=== PATIENT | male | born 1975 | race African-American/Black ===

== ENCOUNTER 2019-03-13 11:07 | Inpatient (IN) | payer OTHER ==
--- NOTE | 2019-03-13 11:50 | ER Document Report ---
ED General - General Chief Complaint: Leg Swelling Stated Complaint: LEG SWELLING Time Seen by Provider: 03/13/19 11:47 Mode of Arrival: Medic Information source: Patient TRAVEL OUTSIDE OF THE [place] IN LAST 30 DAYS: No - Related Data Allergies/Adverse Reactions: No Known Allergies Allergy (Unverified 03/29/15 16:38) Past Medical History - Social History Smoking Status: Never Smoker Frequency of alcohol use: None Drug Abuse: None Family History: Reviewed & Not Pertinent Patient has suicidal ideation: No Patient has homicidal ideation: No - Past Medical History Cardiac Medical History: Reports: Hx Hypertension Past Surgical History: Reports: Hx Orthopedic Surgery - back Physical Exam - Vital signs Vitals: Temp Pulse Resp BP Pulse Ox 98.2 F 115 H 14 123/59 L 95 03/13/19 11:22 03/13/19 11:22 03/13/19 11:22 03/13/19 11:22 03/13/19 11:22 Course - Vital Signs Vital signs: Temp Pulse Resp BP Pulse Ox 98.2 F 115 H 14 123/59 L 95 03/13/19 11:22 03/13/19 11:22 03/13/19 11:22 03/13/19 11:22 03/13/19 11:22
--- NOTE | 2019-03-13 11:52 | ER Document Report ---
ED Medical Screen (RME) - General Chief Complaint: Leg Swelling Stated Complaint: LEG SWELLING Time Seen by Provider: 03/13/19 11:47 Mode of Arrival: Medic Information source: Patient Notes: 43-year-old male presented in ED for increasing swelling to both ankles and legs up to thigh. He states he is also got much short of breath and he states he has medicines that he supposed to be taken at home but has not been taking them recently he is also supposed to be on oxygen at home but has not been on it. He states that he was told that his machine was too old and he needed to get a new machine. When he did get to the emergency room his O2 sat was 88% with oxygen go up to 100%. Patient is short of breath with gross edema to both legs. We will get labs chest x-ray decreased oxygen until he sats at 96 and he will be followed up with another provider. I have greeted and performed a rapid initial assessment of this patient. A comprehensive ED assessment and evaluation of the patient, analysis of test results and completion of medical decision making process will be conducted by an additional ED providers. TRAVEL OUTSIDE OF THE [place] IN LAST 30 DAYS: No - Related Data Allergies/Adverse Reactions: No Known Allergies Allergy (Unverified 03/29/15 16:38) Past Medical History - Social History Frequency of alcohol use: None Drug Abuse: None - Past Medical History Cardiac Medical History: Reports: Hx Hypertension Past Surgical History: Reports: Hx Orthopedic Surgery - back Physical Exam - Vital signs Vitals: Temp Pulse Resp BP Pulse Ox 98.2 F 115 H 14 123/59 L 95 03/13/19 11:22 03/13/19 11:22 03/13/19 11:22 03/13/19 11:22 03/13/19 11:22 Course - Vital Signs Vital signs: Temp Pulse Resp BP Pulse Ox 98.2 F 115 H 14 123/59 L 95 03/13/19 11:22 03/13/19 11:22 03/13/19 11:22 03/13/19 11:22 03/13/19 11:22
[2019-03-13] MEDS ORDERED: KETOROLAC TROMETHAMINE INJ/PF 30 MG/1 ML SDV IV ONE (12:09)
[2019-03-13] MEDS ORDERED: FUROSEMIDE INJ/PF 40 MG/4 ML SDV IV ONE (12:09)
[2019-03-13 12:20] LABS: ABSOLUTE BASOPHILS # (AUTO) 0.1 10^3/uL (0.0-0.2); ABSOLUTE EOSINOPHILS # (AUTO) 0.1 10^3/uL (0.0-0.6); ABSOLUTE LYMPHOCYTES (AUTO) 2.2 10^3/uL (0.5-4.7); ABSOLUTE MONOCYTES (AUTO) 0.9 10^3/uL (0.1-1.4); ABSOLUTE NEUT (AUTO) 7.3 10^3/uL (1.7-8.2); BASOPHILS % (AUTO) 0.5 % (0-2); EOSINOPHILS % (AUTO) 1.3 % (0-6); HEMATOCRIT 34.9 % (37.9-51.0); HEMOGLOBIN 11.8 g/dL (13.5-17.0); LYMPHOCYTES % (AUTO) 20.5 % (13-45); MEAN CORPUSCULAR HGB CONC 33.7 g/dL (32.0-36.0); MEAN CORPUSCULAR VOLUME 95 fl (80-97); MONOCYTES % (AUTO) 8.1 % (3-13); PLATELET COUNT 183 10^3/uL (150-450); RED BLOOD COUNT 3.67 10^6/uL (4.35-5.55); RED CELL DISTRIBUTION WIDTH 13.9 % (11.5-14.0); SEGMENTED NEUTROPHILS % (AUTO) 69.6 % (42-78); TOTAL CELLS COUNTED % (AUTO) 100 %; WHITE BLOOD COUNT 10.6 10^3/uL (4.0-10.5)
--- NOTE | 2019-03-13 12:22 | ER Document Report ---
ED General - General Chief Complaint: Leg Swelling Stated Complaint: LEG SWELLING Time Seen by Provider: 03/13/19 11:47 Mode of Arrival: Medic Information source: Patient, Relative TRAVEL OUTSIDE OF THE [place] IN LAST 30 DAYS: No - HPI Patient complains to provider of: swelling Onset: Yesterday - pt has h/o CHF and HTN with increased swelling of his legs especially over the past 1-2 days. He states he has not been taking his meds or using his home O2 as he should. He denies SOB, CP - Related Data Allergies/Adverse Reactions: No Known Allergies Allergy (Unverified 03/29/15 16:38) Past Medical History - General Information source: Relative - Social History Smoking Status: Never Smoker Frequency of alcohol use: None Drug Abuse: None Family History: Reviewed & Not Pertinent Patient has suicidal ideation: No Patient has homicidal ideation: No - Past Medical History Cardiac Medical History: Reports: Hx Congestive Heart Failure, Hx Hypercholesterolemia, Hx Hypertension Pulmonary Medical History: Reports: Hx COPD Past Surgical History: Reports: Hx Orthopedic Surgery - back, Hx Vascular Surgery - IVC filter Review of Systems - Review of Systems Constitutional: No symptoms reported EENT: No symptoms reported Cardiovascular: No symptoms reported Respiratory: No symptoms reported Gastrointestinal: No symptoms reported Musculoskeletal: Leg swelling, Ankle swelling Neurological/Psychological: No symptoms reported -: Yes All other systems reviewed and negative Physical Exam - Vital signs Vitals: Temp Pulse Resp BP Pulse Ox 98.2 F 115 H 14 123/59 L 95 03/13/19 11:22 03/13/19 11:22 03/13/19 11:22 03/13/19 11:22 03/13/19 11:22 - General General appearance: Appears well In distress: None - pt. is morbidly obese - HEENT Pharynx: Normal Neck: Normal - Respiratory Respiratory status: No respiratory distress Breath sounds: Normal Chest palpation: Normal - Cardiovascular Rhythm: Regular Heart sounds: Normal auscultation Murmur: No - Abdominal Inspection: Normal Bowel sounds: Normal Tenderness: Nontender Organomegaly: No organomegaly - Extremities General lower extremity: Tender, Edema - there is massive swelling of the LE's bilaterally; N/V intact. There is min-mod TTP Course - Re-evaluation Re-evalutation: 03/13/19 14:25 Pt's exam essentially unchanged at end of w/u -- I feel this pt. cannot go home in his current condition. I will call the hospitalist for consult. - Vital Signs Vital signs: Temp Pulse Resp BP Pulse Ox 98.2 F 115 H 13 122/68 100 03/13/19 11:22 03/13/19 11:22 03/13/19 14:01 03/13/19 14:01 03/13/19 14:01 - Laboratory Result Diagrams: 03/13/19 11:45 03/13/19 11:45 Laboratory results interpreted by me: 03/13/19 03/13/19 11:45 11:45 WBC 10.6 H RBC 3.67 L Hgb 11.8 L Hct 34.9 L BUN 41 H Creatinine 1.81 H Est GFR ( Amer) 49 L Est GFR (MDRD) Non-Af 41 L Glucose 121 H Creatine Kinase 244 H Total Protein 8.6 H - Diagnostic Test Radiology reviewed: Reports reviewed - cardiomegaly with interstitial edema. - EKG Interpretation by Me EKG shows normal: Sinus rhythm Rate: Normal Rhythm: NSR - nsr without acute change - Consults xiomara Wisdom Time consulted: 14:26 Consulted provider: will come to ER Critical Care Note - Critical Care Note Total time excluding time spent on procedures (mins): 30 Discharge - Discharge Clinical Impression: CHF (congestive heart failure) Qualifiers: Heart failure type: unspecified Heart failure chronicity: chronic Qualified Code(s): I50.9 - Heart failure, unspecified Condition: Fair Disposition: ADMITTED OBSERVATION Admitting Provider: Artis (Hospitalist) Unit Admitted: Telemetry
[2019-03-13 12:31] LABS: ALBUMIN 4.6 g/dL (3.5-5.0); ALKALINE PHOSPHATASE 88 U/L (38-126); ANION GAP 13 (5-19); ASPARTATE AMINO TRANSFERASE 22 U/L (17-59); BILIRUBIN,DIRECT 0.3 mg/dL (0.0-0.4); BILIRUBIN,TOTAL 1.2 mg/dL (0.2-1.3); BLOOD UREA NITROGEN 41 mg/dL (7-20); CALCIUM 9.9 mg/dL (8.4-10.2); CARBON DIOXIDE 22 mmol/L (22-30); CHLORIDE 103 mmol/L (98-107); CREATINE KINASE 244 U/L (55-170); GLUCOSE 121 mg/dL (75-110); POTASSIUM 4.3 mmol/L (3.6-5.0); TOTAL PROTEIN 8.6 g/dL (6.3-8.2)
[2019-03-13 12:43] LABS: CREATINE KINASE MB 0.64 ng/mL (<4.55)
[2019-03-13 12:47] LABS: TROPONIN I 0.057 ng/mL
--- NOTE | 2019-03-13 13:23 | RADIOLOGY REPORT (SQ) ---
EXAM DESCRIPTION: CHEST 2 VIEWS COMPLETED DATE/TIME: 03/13/2019 1:15 pm REASON FOR STUDY: CHF COMPARISON: 03/29/2015 EXAM PARAMETERS: NUMBER OF VIEWS: two views TECHNIQUE: Digital Frontal and Lateral radiographic views of the chest acquired. RADIATION DOSE: NA LIMITATIONS: none FINDINGS: LUNGS AND PLEURA: Mild diffuse interstitial pulmonary opacity. MEDIASTINUM AND HILAR STRUCTURES: No masses or contour abnormalities. HEART AND VASCULAR STRUCTURES: Cardiomegaly. BONES: No acute findings. HARDWARE: None in the chest. OTHER: No other significant finding. IMPRESSION: Mild diffuse interstitial pulmonary opacity, likely edema in the setting of cardiomegaly . No focal airspace opacity. TECHNICAL DOCUMENTATION: JOB ID: [id number] [email or web address]- All Rights Reserved Reading location - IP/workstation name: [email or web address]
[2019-03-13] MEDS ORDERED: LEVALBUTEROL HCL NEB 1.25 MG/3 ML AMPUL NEB PRN (15:01)
[2019-03-13] MEDS ORDERED: TAMSULOSIN HCL 0.4 MG CAP.SR.24H PO ONE (15:09)
--- NOTE | 2019-03-13 15:26 | PDOC H&P ---
History of Present Illness Admission Date/PCP: 03/13/19 14:37 Patient complains of: Came in with increasing shortness of breath and weight again for the last couple of days. History of Present Illness: ELIAZAR TERRY is a 43 year old male with history of hypertension, congestive heart failure, morbid obesity came to the emergency room with complaints of weight gain more than 50 pounds in the last couple of days associated with increasing shortness of breath. As per the patient his Lasix was discontinued 2 weeks ago and started on lisinopril/hydrochlorothiazide after that he started gaining weight. Drinking gallons of water water but the urinary output is not significant. Denies any headaches denies any dizzy spells denies any chest pains. Patient is given the history of back surgery several years ago complaining of increasing back pain. Past Medical History Cardiac Medical History: Reports: Congestive Heart Failure, Hyperlipidema, Hypertension Pulmonary Medical History: Reports: Chronic Obstructive Pulmonary Disease (COPD) Neurological Medical History: Reports: None Renal/ Medical History: Reports: None Malignancy Medical History: Reports: None Psychiatric Medical History: Reports: None Past Surgical History Past Surgical History: Reports: Orthopedic Surgery - back, Vascular Surgery - IVC filter Social History Information Source: Patient Lives with: Family Smoking Status: Never Smoker Hx Recreational Drug Use: No Hx Prescription Drug Abuse: No Family History Family History: Reviewed & Not Pertinent Parental Family History Reviewed: Yes - htn/chf Children Family History Reviewed: Yes Sibling(s) Family History Reviewed.: Yes Medication/Allergy Allergies/Adverse Reactions: No Known Allergies Allergy (Unverified 03/29/15 16:38) Review of Systems Constitutional: PRESENT: fatigue, weakness. ABSENT: fever(s) Cardiovascular: PRESENT: palpitations Gastrointestinal: ABSENT: abdominal pain, constipation, diarrhea, hematemesis, hematochezia, nausea, vomiting Musculoskeletal: ABSENT: joint swelling Integumentary: ABSENT: rash, wounds Neurological: ABSENT: abnormal gait, abnormal speech, confusion, dizziness, focal weakness, syncope Psychiatric: ABSENT: anxiety, depression, homidical ideation, suicidal ideation Endocrine: ABSENT: cold intolerance, heat intolerance, polydipsia, polyuria Physical Exam Vital Signs: Temp Pulse Resp BP Pulse Ox 98.2 F 115 H 15 110/64 99 03/13/19 11:22 03/13/19 11:22 03/13/19 15:01 03/13/19 15:01 03/13/19 15:01 Intake & Output 03/12/19 03/13/19 03/14/19 06:59 06:59 06:59 Weight 228.5 kg General appearance: PRESENT: no acute distress Head exam: PRESENT: atraumatic Eye exam: PRESENT: PERRLA Mouth exam: PRESENT: neck supple Teeth exam: PRESENT: poor dentation Neck exam: ABSENT: carotid bruit, JVD, lymphadenopathy, thyromegaly Respiratory exam: PRESENT: clear to auscultation corinne. ABSENT: rales, rhonchi, wheezes Cardiovascular exam: PRESENT: RRR. ABSENT: diastolic murmur, rubs, systolic murmur GI/Abdominal exam: PRESENT: normal bowel sounds, soft. ABSENT: distended, guarding, mass, organolmegaly, rebound, tenderness Rectal exam: PRESENT: deferred Extremities exam: PRESENT: full ROM, other - Chronic lower extremity changes no obvious edema seen.. ABSENT: calf tenderness, clubbing, pedal edema Neurological exam: PRESENT: alert, awake, oriented to person, oriented to place, oriented to time, oriented to situation, CN II-XII grossly intact. ABSENT: mot or sensory deficit Psychiatric exam: PRESENT: appropriate affect, normal mood. ABSENT: homicidal ideation, suicidal ideation Results Laboratory Results: 03/13/19 11:45 03/13/19 11:45 03/13/19 03/13/19 11:45 11:45 WBC 10.6 H RBC 3.67 L Hgb 11.8 L Hct 34.9 L MCV 95 MCH 32.0 MCHC 33.7 RDW 13.9 Plt Count 183 Seg Neutrophils % 69.6 Sodium 137.5 Potassium 4.3 Chloride 103 Carbon Dioxide 22 Anion Gap 13 BUN 41 H Creatinine 1.81 H Est GFR ( Amer) 49 L Glucose 121 H Calcium 9.9 Total Bilirubin 1.2 AST 22 Alkaline Phosphatase 88 Total Protein 8.6 H Albumin 4.6 03/13/19 03/13/19 11:45 11:45 Creatine Kinase 244 H CK-MB (CK-2) 0.64 Troponin I 0.057 NT-Pro-B Natriuret Pep 54 Impressions: Chest X-Ray 03/13/19 12:10 IMPRESSION: Mild diffuse interstitial pulmonary opacity, likely edema in the setting of cardiomegaly. No focal airspace opacity. Assessment and Plan - Diagnosis (1) CHF (congestive heart failure) Qualifiers: Heart failure type: unspecified Heart failure chronicity: chronic Qualified Code(s): I50.9 - Heart failure, unspecified Is this a current diagnosis for this admission?: Yes Plan: 03/13/2019-patient most likely has a diastolic heart failure. Complaining of weight gain more than 50 pounds. Drinking gallons of water as per the patient but urine output is decreased. Plan to do the renal ultrasound to check check for hydronephrosis he is taking Flomax at home plan is to restart Flomax restart Prozac. To give Lasix tonight to see how he is going to respond and change of plans depending on the findings and urinary output. Placed on fluid restriction 1500 cc/day. Started on a cardiac diet. GI prophylaxis DVT prophylaxis initiated. I am not entirely convinced that patient is in CHF exacerbation. (2) Low back pain Qualifiers: Back pain laterality: bilateral Sciatica presence: without sciatica Qualified Code(s): M54.5 - Low back pain Is this a current diagnosis for this admission?: No Plan: 03/13/2019-patient has a chronic back pain he had a back surgery several years ago to start him on oxycodone 5/325 every 6 as needed for pain. (3) Morbid obesity Is this a current diagnosis for this admission?: No Plan: 03/13/2019-patient BMI is more than 74 diet exercise weight loss lifestyle modifications are discussed with the patient and dietary consult was requested. (4) HTN (hypertension) Is this a current diagnosis for this admission?: No Plan: 03/13/2019-patient is given the history of chronic essential hypertension. Blood pressure is 124/80. Plan is to closely monitor the blood pressure. (5) Depression Is this a current diagnosis for this admission?: No Plan: Patient has history of chronic depression on Prozac at home which was restarted during this hospital stay. (6) DVT (deep venous thrombosis) Is this a current diagnosis for this admission?: No Plan: 03/13/2019-patient given the history of bilateral DVT extensive DVT as per the patient with IVC filter. - Time Time Spent with patient: 25-34 minutes Medications reviewed and adjusted accordingly: Yes Anticipated discharge: Home
[2019-03-13 15:46] LABS: APPEARANCE,URINE SLIGHTLY-CLOUDY; BILIRUBIN,URINE NEGATIVE (NEGATIVE); COLOR,URINE YELLOW; GLUCOSE, URINE NEGATIVE (NEGATIVE); KETONES,URINE NEGATIVE (NEGATIVE); LEUKOCYTE ESTERASE,URINE NEGATIVE (NEGATIVE); NITRITE,URINE NEGATIVE (NEGATIVE); PROTEIN,URINE NEGATIVE (NEGATIVE); URINE SPECIFIC GRAVITY 1.012; UROBILINOGEN,URINE NEGATIVE mg/dL (<2.0)
[2019-03-13] MEDS ORDERED: INFLUENZA QUAD (6MOS+) 2019-20 VAC 0.5 ML SYR IM ONE (17:30)
[2019-03-13] MEDS: FUROSEMIDE INJ/PF 40 MG/4 ML SDV IV SCH (17:58)
[2019-03-13] MEDS: OXYCODONE-ACETAMINOPHEN 5-325 MG TABLET PO PRN ×2 (17:58→23:44)
--- NOTE | 2019-03-13 18:00 | PSYCHOLOGICAL NOTE ---
Psych Note - Psych Note Date seen by psych provider: 03/13/19 Psych Note: Depression Psychosocial stressors no medication recommendation at this time. Impression/plan: Patient is cleared from acute psychiatric services at this time. Patient currently takes Prozac 20 mg daily. This is an appropriate medication to address any depression and anxiety the patient is experiencing. Patient disclosed situational difficulties surrounding social concerns having his basic needs met. There is no concerns for suicidal or homicidal ideation patient did not demonstrating any behaviors of responding to internal stimuli i.e. organized linear thought processes, good eye contact, and normal conver sational speech. If any new concerns please reconsult. Dr. Calderon was consulted to care management of this patient; attending physicians in agreement with recommendations and disposition.
[2019-03-13 18:13] LABS: CREATINE KINASE MB 0.66 ng/mL (<4.55); TROPONIN I 0.048 ng/mL
[2019-03-13] MEDS: METOPROLOL TARTRATE 100 MG TABLET PO SCH (18:26)
[2019-03-13] MEDS: HEPARIN SOD (PORCINE) 5,000 UNIT/ML 1 ML VIAL SUBCUT SCH (21:51)
[2019-03-13] MEDS: FAMOTIDINE 20 MG TABLET PO SCH (21:51)
[2019-03-13] MEDS: MELATONIN 3 MG TABLET PO SCH (21:51)
[2019-03-13] MEDS ORDERED: METOPROLOL TARTRATE 100 MG TABLET PO SCH (22:00)
[2019-03-13 23:53] LABS: CREATINE KINASE MB 0.61 ng/mL (<4.55); TROPONIN I 0.065 ng/mL
[2019-03-14] MEDS: FUROSEMIDE INJ/PF 40 MG/4 ML SDV IV SCH (00:15)
[2019-03-14] MEDS: NALBUPHINE HCL INJ 10 MG/1 ML AMPULE IV PRN ×3 (00:50→21:11)
[2019-03-14] MEDS ORDERED: FUROSEMIDE INJ/PF 40 MG/4 ML SDV IV SCH (06:00)
[2019-03-14 06:01] LABS: ALBUMIN 4.4 g/dL (3.5-5.0); ALKALINE PHOSPHATASE 74 U/L (38-126); ANION GAP 13 (5-19); ASPARTATE AMINO TRANSFERASE 21 U/L (17-59); BILIRUBIN,DIRECT 0.3 mg/dL (0.0-0.4); BILIRUBIN,TOTAL 0.8 mg/dL (0.2-1.3); BLOOD UREA NITROGEN 52 mg/dL (7-20); CALCIUM 9.5 mg/dL (8.4-10.2); CARBON DIOXIDE 21 mmol/L (22-30); CHLORIDE 102 mmol/L (98-107); CHOLESTEROL 223.25 mg/dL (0-200); GLUCOSE 118 mg/dL (75-110); POTASSIUM 5.2 mmol/L (3.6-5.0); TOTAL PROTEIN 8.1 g/dL (6.3-8.2); TRIGLYCERIDES 122 mg/dL (<150)
[2019-03-14] MEDS: METOPROLOL TARTRATE 100 MG TABLET PO SCH ×2 (06:04→17:32)
[2019-03-14] MEDS: HEPARIN SOD (PORCINE) 5,000 UNIT/ML 1 ML VIAL SUBCUT SCH ×3 (06:05→21:11)
[2019-03-14 06:12] LABS: CREATINE KINASE MB 0.69 ng/mL (<4.55); DIRECT LDL 109 mg/dL (<100); TROPONIN I 0.056 ng/mL
--- NOTE | 2019-03-14 07:17 | EKG REPORT ---
SEVERITY:- NORMAL ECG - SINUS RHYTHM : Confirmed by: Pavithra Grider 14-Mar-2019 07:15:51
--- NOTE | 2019-03-14 07:17 | EKG REPORT ---
SEVERITY:- OTHERWISE NORMAL ECG - SINUS TACHYCARDIA : Confirmed by: Pavithra Grider 14-Mar-2019 07:15:46
[2019-03-14] MEDS: ONDANSETRON HCL INJ/PF 4 MG/2 ML SDV IV PRN ×2 (08:15→19:57)
[2019-03-14] MEDS ORDERED: NORMAL SALINE 1000 ML 1,000 ML IV PRN ×2 (09:43→13:54)
[2019-03-14] MEDS: FLUOXETINE HCL 20 MG CAPSULE PO SCH (10:33)
[2019-03-14] MEDS: FAMOTIDINE 20 MG TABLET PO SCH ×2 (10:33→21:11)
--- NOTE | 2019-03-14 15:13 | PDOC PROGRESS REPORT ---
Subjective Progress Note for:: 03/14/19 Subjective:: The patient is complaining of a sense of tightness that he believes is fluid retention. He is super morbidly obese with a BMI of 70.6. He does not have significant pitting edema. His subcutaneous tissue does feel firm but this certainly could just be his obesity. His urine output has been low and in fact his creatinine has risen. With a normal BNP it makes me think this is in fact not failure but has more to do with his obesity. Reason For Visit: CHF Physical Exam Vital Signs: Temp Pulse Resp BP Pulse Ox 98.6 F 78 14 110/59 L 99 03/14/19 07:53 03/14/19 14:00 03/14/19 07:53 03/14/19 07:53 03/14/19 07:53 Intake & Output 03/13/19 03/14/19 03/15/19 06:59 06:59 06:59 Intake Total 662 222 Output Total 200 Balance 462 222 Weight 217 kg 217 kg General appearance: PRESENT: no acute distress, cooperative, morbidly obese, well-developed, well-nourished Head exam: PRESENT: atraumatic, normocephalic Ear exam: PRESENT: normal external ear exam. ABSENT: bleeding, drainage Mouth exam: PRESENT: dry mucosa, tongue midline Respiratory exam: PRESENT: decreased breath sounds - Very decreased breath sounds due to body habitus, symmetrical, unlabored. ABSENT: rales, rhonchi, tachypnea, wheezes Cardiovascular exam: PRESENT: RRR, +S1, +S2, other - Distant heart sounds due to body habitus GI/Abdominal exam: PRESENT: diminished bowel sounds - Likely due to body habitus, soft, other - Pendulous abdomen. ABSENT: tenderness Rectal exam: PRESENT: deferred Gentrourinary exam: ABSENT: indwelling catheter Extremities exam: PRESENT: other - Marked non-pitting chronic lower extremity edema Musculoskeletal exam: PRESENT: other - Inspection is consistent with his super morbid obesity Neurological exam: PRESENT: alert, awake, oriented to person, oriented to place, oriented to time, oriented to situation, CN II-XII grossly intact Psychiatric exam: PRESENT: appropriate affect. ABSENT: agitated, anxious Focused psych exam: ABSENT: delusional, restlessness Skin exam: PRESENT: dry - Very dry skin on his legs with mild pigmentation from chronic venous insufficiency Results Laboratory Results: 03/13/19 11:45 03/14/19 04:49 03/13/19 03/14/19 03/14/19 15:17 04:49 04:49 Sodium 135.6 L Potassium 5.2 H Chloride 102 Carbon Dioxide 21 L Anion Gap 13 BUN 52 H Creatinine 2.36 H Est GFR ( Amer) 36 L Glucose 118 H Calcium 9.5 Magnesium 2.3 Total Bilirubin 0.8 AST 21 Alkaline Phosphatase 74 Total Protein 8.1 Albumin 4.4 Triglycerides 122 Cholesterol 223.25 H LDL Cholesterol Direct 109 H VLDL Cholesterol 24.0 HDL Cholesterol 44 TSH 2.01 Urine Color YELLOW Urine Appearance SLIGHTLY-CLOUDY Urine pH 5.0 Ur Specific Rebuck 1.012 Urine Protein NEGATIVE Urine Glucose (UA) NEGATIVE Urine Ketones NEGATIVE Urine Blood NEGATIVE Urine Nitrite NEGATIVE Ur Leukocyte Esterase NEGATIVE Urine WBC (Auto) 2 Urine RBC (Auto) 1 03/13/19 03/13/19 03/13/19 11:45 11:45 17:25 Creatine Kinase 244 H 236 H CK-MB (CK-2) 0.64 Troponin I 0.057 NT-Pro-B Natriuret Pep 54 03/13/19 03/13/19 03/13/19 17:35 22:51 22:51 Creatine Kinase 242 H CK-MB (CK-2) 0.66 0.61 Troponin I 0.048 0.065 NT-Pro-B Natriuret Pep 03/14/19 03/14/19 03/14/19 04:49 04:49 04:49 Creatine Kinase 268 H CK-MB (CK-2) 0.69 Troponin I 0.056 NT-Pro-B Natriuret Pep 73 Impressions: Chest X-Ray 03/13/19 12:10 IMPRESSION: Mild diffuse interstitial pulmonary opacity, likely edema in the setting of cardiomegaly. No focal airspace opacity. Assessment and Plan - Diagnosis (1) CHF (congestive heart failure) Qualifiers: Heart failure type: unspecified Heart failure chronicity: chronic Qualified Code(s): I50.9 - Heart failure, unspecified Is this a current diagnosis for this admission?: Yes Plan: 03/14/2019-according to the patient has a history of congestive heart failure. He is unaware of the type. His BNP is normal. I have ordered an echocardiogram and hopefully we can get useful images. I doubt very much that this is congestive heart failure and so I have held his Lasix and I am giving him fluids because of his acute kidney injury. (2) Acute kidney injury Is this a current diagnosis for this admission?: Yes Plan: 03/14/2019-the patient's creatinine has increased. This is probably due to some volume depletion. He stated that he was drinking a lot of water prior to admission. It is hard to know what he describes as a lot. We will get IV fluids. We will monitor his intake and output. I will try and keep strict tract of volumes as we will need to slow and eventually discontinue the IV fluid at some point. His serum potassium was also minimally elevated and we will continue to monitor that. (3) Hyperkalemia Is this a current diagnosis for this admission?: Yes Plan: 03/14/2019-serum potassium is minimally elevated. This is due to the acute kidney injury. I will recheck his electrolytes and with IV fluids I expect his serum potassium to normalize. In addition, we will resume some furosemide therapy probably tomorrow or the next day and this should also bring his potassium down. (4) HTN (hypertension) Qualifiers: Hypertension type: essential hypertension Qualified Code(s): I10 - Essential (primary) hypertension Is this a current diagnosis for this admission?: Yes Plan: 03/14/2019-the patient does have a history of hypertension. He is normally on lisinopril with hydrochlorothiazide. He was previously on furosemide. We are currently holding the lisinopril and hydrochlorothiazide because of the acute kidney injury. We will continue to monitor his blood pressure and resume medications as needed. He is currently on metoprolol. (5) Morbid obesity Is this a current diagnosis for this admission?: Yes Plan: 03/14/2019-I believe that his shortness of breath and some of his other symptoms are directly related to his morbid obesity. He has a body mass index of 70 and likely has morbid obesity hypoventilation syndrome. It could also give him a sensation of tightness especially in dependent areas. It is a huge health risk for the patient. (6) Depression Qualifiers: Depression Type: unspecified Qualified Code(s): F32.9 - Major depressive disorder, single episode, unspecified Is this a current diagnosis for this admission?: Yes Plan: 03/14/2019-we will continue the patient's Prozac. Consideration could be given to Wellbutrin. But this is an outpatient management issue. We will continue the Prozac for now. (7) Low back pain Qualifiers: Chronicity: chronic Back pain laterality: bilateral Sciatica presence: without sciatica Qualified Code(s): M54.5 - Low back pain; G89.29 - Other chronic pain Is this a current diagnosis for this admission?: Yes Plan: 03/14/2019-the patient had surgery on his back years ago for a "tumor that was benign". He describes compression neuropathy as the reason for the urgent surgery. We will use as needed analgesia for the time being. He cannot use nonsteroidal anti-inflammatory medications due to his hypertension and kidney failure. (8) DVT (deep venous thrombosis) Qualifiers: Chronicity: chronic Is this a current diagnosis for this admission?: No Plan: 03/14/2019-the patient has a history of deep venous thrombosis. He does have a vena cava filter. We will continue his subcutaneous heparin. - Plan Summary Summary: 03/14/2019-the patient's shortness of breath at this particular time is not congestive heart failure. His brain atretic peptide is less than 100. Echocardiogram results are pending. I believe his shortness of breath is more related to morbid obesity. He describes noticing on his body exactly where he loses fluid when he urinates. This is not a physiologic possibility. I am holding his furosemide and giving him fluid today to correct his acute kidney injury and hyperkalemia. His lisinopril and hydrochlorthiazide are on hold. Follow-up echo results when available. - Time Time Spent with patient: 15-24 minutes Medications reviewed and adjusted accordingly: Yes
[2019-03-14 19:35] LABS: ANION GAP 13 (5-19); BLOOD UREA NITROGEN 49 mg/dL (7-20); CALCIUM 9.6 mg/dL (8.4-10.2); CARBON DIOXIDE 24 mmol/L (22-30); CHLORIDE 100 mmol/L (98-107); GLUCOSE 102 mg/dL (75-110); POTASSIUM 4.9 mmol/L (3.6-5.0)
[2019-03-14] MEDS: OXYCODONE-ACETAMINOPHEN 5-325 MG TABLET PO PRN (19:57)
[2019-03-14] MEDS: MELATONIN 3 MG TABLET PO SCH (21:11)
[2019-03-14] MEDS: ATORVASTATIN CALCIUM 40 MG TABLET PO SCH (21:11)
[2019-03-14] MEDS: ASPIRIN 81 MG TABLET, ENT COATED PO SCH (21:11)
[2019-03-15] MEDS: NALBUPHINE HCL INJ 10 MG/1 ML AMPULE IV PRN ×3 (03:43→19:39)
[2019-03-15] MEDS: METOPROLOL TARTRATE 100 MG TABLET PO SCH ×2 (06:23→17:38)
[2019-03-15] MEDS: HEPARIN SOD (PORCINE) 5,000 UNIT/ML 1 ML VIAL SUBCUT SCH ×3 (06:23→21:19)
[2019-03-15 06:28] LABS: ANION GAP 13 (5-19); BLOOD UREA NITROGEN 47 mg/dL (7-20); CALCIUM 9.3 mg/dL (8.4-10.2); CARBON DIOXIDE 21 mmol/L (22-30); CHLORIDE 102 mmol/L (98-107); GLUCOSE 108 mg/dL (75-110)
[2019-03-15] MEDS: FLUOXETINE HCL 20 MG CAPSULE PO SCH (11:14)
[2019-03-15] MEDS: FAMOTIDINE 20 MG TABLET PO SCH ×2 (11:14→21:18)
[2019-03-15] MEDS: OXYCODONE-ACETAMINOPHEN 5-325 MG TABLET PO PRN ×2 (11:15→23:48)
--- NOTE | 2019-03-15 13:34 | PDOC PROGRESS REPORT ---
Subjective Progress Note for:: 03/15/19 Subjective:: No adverse events overnight. No new complaints. Vital signs been stable. He said he is drinking fluids fine but he does not really have much of an appetite. He is been on room air without any difficulty. Reason For Visit: CHF Physical Exam Vital Signs: Temp Pulse Resp BP Pulse Ox 98.8 F 84 18 127/59 H 100 03/15/19 11:42 03/15/19 11:42 03/15/19 11:42 03/15/19 11:42 03/15/19 11:42 Intake & Output 03/14/19 03/15/19 03/16/19 06:59 06:59 06:59 Intake Total 662 2666 600 Output Total 200 1950 450 Balance 462 716 150 Weight 217 kg 217.9 kg General appearance: PRESENT: no acute distress, cooperative, disheveled, morbidly obese Respiratory exam: PRESENT: decreased breath sounds, symmetrical, unlabored. ABSENT: accessory muscle use, chest wall tenderness, crackles, prolonged expiratory phas, rhonchi, wheezes Cardiovascular exam: PRESENT: RRR - Somewhat muffled, +S1, +S2 Pulses: PRESENT: normal carotid pulses Vascular exam: PRESENT: normal capillary refill GI/Abdominal exam: PRESENT: normal bowel sounds, soft. ABSENT: distended, guarding, rebound, tenderness Extremities exam: PRESENT: other - It looks have some chronic nonpitting edema. ABSENT: clubbing Musculoskeletal exam: PRESENT: normal inspection. ABSENT: deformity Neurological exam: PRESENT: alert, awake, oriented to person, oriented to place, oriented to situation Psychiatric exam: PRESENT: appropriate affect, normal mood Skin exam: PRESENT: dry, warm, other - Evidence of long-standing chronic venous insufficiency of the lower extremities Results Laboratory Results: 03/13/19 11:45 03/15/19 05:05 03/14/19 03/15/19 18:40 05:05 Sodium 136.8 L 135.6 L Potassium 4.9 5.0 Chloride 100 102 Carbon Dioxide 24 21 L Anion Gap 13 13 BUN 49 H 47 H Creatinine 1.62 H 1.33 H Est GFR ( Amer) 56 L > 60 Glucose 102 108 Calcium 9.6 9.3 Magnesium 2.4 H 03/13/19 03/13/19 03/13/19 11:45 11:45 17:25 Creatine Kinase 244 H 236 H CK-MB (CK-2) 0.64 Troponin I 0.057 NT-Pro-B Natriuret Pep 54 03/13/19 03/13/19 03/13/19 17:35 22:51 22:51 Creatine Kinase 242 H CK-MB (CK-2) 0.66 0.61 Troponin I 0.048 0.065 NT-Pro-B Natriuret Pep 03/14/19 03/14/19 03/14/19 04:49 04:49 04:49 Creatine Kinase 268 H CK-MB (CK-2) 0.69 Troponin I 0.056 NT-Pro-B Natriuret Pep 73 Impressions: Chest X-Ray 03/13/19 12:10 IMPRESSION: Mild diffuse interstitial pulmonary opacity, likely edema in the setting of cardiomegaly. No focal airspace opacity. Assessment and Plan - Diagnosis (1) Acute kidney injury Is this a current diagnosis for this admission?: Yes Plan: Improving by holding his Lasix and given some fluid, along with holding some of his other medications. Creatinine is trending back toward normal. (2) Morbid obesity Is this a current diagnosis for this admission?: Yes Plan: Encouraged lifestyle modification, I think that this is probably the main contributor to his dyspnea. The official echocardiogram read is pending, but I do not think he has congestive heart failure. His BNP was only 73. The preliminary read shows an EF 64%, but he may have dilated left atrium and a dilated right ventricle, along with some elevated RVSP, suggesting pulmonary hypertension. (3) DVT (deep venous thrombosis) Qualifiers: Chronicity: chronic Is this a current diagnosis for this admission?: No Plan: Has a history of this, has a vena cava filter (4) Depression Qualifiers: Depression Type: unspecified Qualified Code(s): F32.9 - Major depressive disorder, single episode, unspecified Is this a current diagnosis for this admission?: Yes Plan: Psychosocial evaluation noted, will continue with medications per their recommendation (5) HTN (hypertension) Qualifiers: Hypertension type: essential hypertension Qualified Code(s): I10 - Essential (primary) hypertension Is this a current diagnosis for this admission?: Yes Plan: Currently well controlled (6) Hyperkalemia Is this a current diagnosis for this admission?: Yes Plan: Resolved - Plan Summary Summary: 03/14/2019-the patient's shortness of breath at this particular time is not congestive heart failure. His brain atretic peptide is less than 100. Echocardiogram results are pending. I believe his shortness of breath is more related to morbid obesity. He describes noticing on his body exactly where he loses fluid when he urinates. This is not a physiologic possibility. I am holding his furosemide and giving him fluid today to correct his acute kidney injury and hyperkalemia. His lisinopril and hydrochlorthiazide are on hold. Follow-up echo results when available. - Time Time Spent with patient: 15-24 minutes
[2019-03-15] MEDS: ACETAMINOPHEN 325 MG TABLET PO PRN (19:37)
[2019-03-15] MEDS: MELATONIN 3 MG TABLET PO SCH (21:18)
[2019-03-15] MEDS: ASPIRIN 81 MG TABLET, ENT COATED PO SCH (21:18)
[2019-03-15] MEDS: ATORVASTATIN CALCIUM 40 MG TABLET PO SCH (21:18)
[2019-03-16] MEDS: NALBUPHINE HCL INJ 10 MG/1 ML AMPULE IV PRN ×3 (02:34→20:03)
[2019-03-16] MEDS: METOPROLOL TARTRATE 100 MG TABLET PO SCH ×2 (06:36→18:12)
[2019-03-16] MEDS: OXYCODONE-ACETAMINOPHEN 5-325 MG TABLET PO PRN ×3 (06:36→23:23)
[2019-03-16] MEDS: HEPARIN SOD (PORCINE) 5,000 UNIT/ML 1 ML VIAL SUBCUT SCH ×3 (06:39→22:21)
[2019-03-16 10:20] LABS: ANION GAP 12 (5-19); BLOOD UREA NITROGEN 38 mg/dL (7-20); CALCIUM 9.3 mg/dL (8.4-10.2); CARBON DIOXIDE 23 mmol/L (22-30); CHLORIDE 100 mmol/L (98-107); GLUCOSE 108 mg/dL (75-110); POTASSIUM 4.8 mmol/L (3.6-5.0)
[2019-03-16] MEDS: FAMOTIDINE 20 MG TABLET PO SCH ×2 (10:26→22:21)
[2019-03-16] MEDS: FLUOXETINE HCL 20 MG CAPSULE PO SCH (10:26)
--- NOTE | 2019-03-16 15:13 | PDOC PROGRESS REPORT ---
Subjective Progress Note for:: 03/16/19 Subjective:: No adverse events overnight. No new complaints. Vital signs been stable. Says he feels like his breathing is got better. He is want to focus more on his back pain in his leg pain with his history of arthritis but I told him is not something that we can fix here. We are going to focus on his breathing. He says that he had some pain in the right side of his chest with inspiration. He says he has an IVC filter and that he had blood clots in his leg before but is not on anticoagulation. Reason For Visit: CHF Physical Exam Vital Signs: Temp Pulse Resp BP Pulse Ox 98.6 F 88 17 130/73 H 100 03/16/19 12:02 03/16/19 14:00 03/16/19 12:02 03/16/19 12:02 03/16/19 12:02 Intake & Output 03/15/19 03/16/19 03/17/19 06:59 06:59 06:59 Intake Total 2666 1100 900 Output Total 1950 2850 375 Balance 716 -1750 525 Weight 217.9 kg 217.9 kg General appearance: PRESENT: no acute distress, cooperative, disheveled, morbidly obese Respiratory exam: PRESENT: decreased breath sounds, symmetrical, unlabored. ABSENT: accessory muscle use, chest wall tenderness, crackles, prolonged expiratory phas, rhonchi, wheezes Cardiovascular exam: PRESENT: RRR - Somewhat muffled, +S1, +S2 Pulses: PRESENT: normal carotid pulses Vascular exam: PRESENT: normal capillary refill GI/Abdominal exam: PRESENT: normal bowel sounds, soft. ABSENT: distended, guarding, rebound, tenderness Extremities exam: PRESENT: other - It looks have some chronic nonpitting edema. ABSENT: clubbing Musculoskeletal exam: PRESENT: normal inspection. ABSENT: deformity Neurological exam: PRESENT: alert, awake, oriented to person, oriented to place, oriented to situation Psychiatric exam: PRESENT: appropriate affect, normal mood Skin exam: PRESENT: dry, warm, other - Evidence of long-standing chronic venous insufficiency of the lower extremities Results Laboratory Results: 03/13/19 11:45 03/16/19 09:53 03/16/19 09:53 Sodium 135.2 L Potassium 4.8 Chloride 100 Carbon Dioxide 23 Anion Gap 12 BUN 38 H Creatinine 0.95 Est GFR ( Amer) > 60 Glucose 108 Calcium 9.3 03/13/19 03/13/19 03/13/19 11:45 11:45 17:25 Creatine Kinase 244 H 236 H CK-MB (CK-2) 0.64 Troponin I 0.057 NT-Pro-B Natriuret Pep 54 03/13/19 03/13/19 03/13/19 17:35 22:51 22:51 Creatine Kinase 242 H CK-MB (CK-2) 0.66 0.61 Troponin I 0.048 0.065 NT-Pro-B Natriuret Pep 03/14/19 03/14/19 03/14/19 04:49 04:49 04:49 Creatine Kinase 268 H CK-MB (CK-2) 0.69 Troponin I 0.056 NT-Pro-B Natriuret Pep 73 Impressions: Chest X-Ray 03/13/19 12:10 IMPRESSION: Mild diffuse interstitial pulmonary opacity, likely edema in the setting of cardiomegaly. No focal airspace opacity. Assessment and Plan - Diagnosis (1) Acute kidney injury Is this a current diagnosis for this admission?: Yes Plan: Resolved (2) Morbid obesity Is this a current diagnosis for this admission?: Yes Plan: Encouraged lifestyle modification, I think that this is probably the main contributor to his dyspnea. The official echocardiogram read is pending, but I do not think he has congestive heart failure. His BNP was only 73. The preliminary read shows an EF 64%, but he may have dilated left atrium and a dilated right ventricle, along with some elevated RVSP, suggesting pulmonary hypertension. (3) DVT (deep venous thrombosis) Qualifiers: Chronicity: chronic Is this a current diagnosis for this admission?: No Plan: Has a history of this, has a vena cava filter. He does not want to accept the explanation that he needs 475 pounds with a BMI of over 70 and that that is contributing to his trouble breathing. He does have a history of blood clots an d has an IVC filter and said he was having some pain in the right side of his chest with breathing so now that his kidneys are normal I am going to get a CTA of his chest just to rule out any underlying embolic pathology. (4) Depression Qualifiers: Depression Type: unspecified Qualified Code(s): F32.9 - Major depressive disorder, single episode, unspecified Is this a current diagnosis for this admission?: Yes Plan: Psychosocial evaluation noted, will continue with medications per their recommendation (5) HTN (hypertension) Qualifiers: Hypertension type: essential hypertension Qualified Code(s): I10 - Essential (primary) hypertension Is this a current diagnosis for this admission?: Yes Plan: Currently well controlled (6) Hyperkalemia Is this a current diagnosis for this admission?: Yes Plan: Resolved - Plan Summary Summary: 03/14/2019-the patient's shortness of breath at this particular time is not congestive heart failure. His brain atretic peptide is less than 100. Echocardiogram results are pending. I believe his shortness of breath is more related to morbid obesity. He describes noticing on his body exactly where he loses fluid when he urinates. This is not a physiologic possibility. I am holding his furosemide and giving him fluid today to correct his acute kidney injury and hyperkalemia. His lisinopril and hydrochlorthiazide are on hold. Follow-up echo results when available. - Time Time Spent with patient: 25-34 minutes
[2019-03-16] MEDS: ASPIRIN 81 MG TABLET, ENT COATED PO SCH (22:20)
[2019-03-16] MEDS: ATORVASTATIN CALCIUM 40 MG TABLET PO SCH (22:21)
[2019-03-16] MEDS: MELATONIN 3 MG TABLET PO SCH (22:21)
[2019-03-17] MEDS: NALBUPHINE HCL INJ 10 MG/1 ML AMPULE IV PRN ×3 (06:18→15:46)
[2019-03-17] MEDS: HEPARIN SOD (PORCINE) 5,000 UNIT/ML 1 ML VIAL SUBCUT SCH ×3 (06:25→22:21)
[2019-03-17] MEDS: METOPROLOL TARTRATE 100 MG TABLET PO SCH ×2 (06:25→17:08)
[2019-03-17] MEDS: FAMOTIDINE 20 MG TABLET PO SCH ×2 (09:21→22:11)
[2019-03-17] MEDS: FLUOXETINE HCL 20 MG CAPSULE PO SCH (09:21)
--- NOTE | 2019-03-17 09:21 | PDOC PROGRESS REPORT ---
Subjective Progress Note for:: 03/17/19 Subjective:: 03/17/2019-hematuria and abdominal pain Reason For Visit: CHF Physical Exam Vital Signs: Temp Pulse Resp BP Pulse Ox 99.1 F 111 H 22 H 132/75 H 99 03/17/19 04:16 03/17/19 07:00 03/17/19 04:16 03/17/19 04:16 03/17/19 04:16 Intake & Output 03/16/19 03/17/19 03/18/19 06:59 06:59 06:59 Intake Total 1100 1654 Output Total 2850 1325 Balance -1750 329 Weight 217.9 kg 217 kg General appearance: PRESENT: no acute distress, well-developed, well-nourished Neck exam: ABSENT: carotid bruit, JVD, lymphadenopathy, thyromegaly Respiratory exam: PRESENT: clear to auscultation corinne. ABSENT: rales, rhonchi, wheezes Cardiovascular exam: PRESENT: RRR. ABSENT: diastolic murmur, rubs, systolic murmur Pulses: PRESENT: +1 pedal pulses bilateral Vascular exam: PRESENT: normal capillary refill GI/Abdominal exam: PRESENT: normal bowel sounds, soft. ABSENT: distended, guarding, mass, organolmegaly, rebound, tenderness Extremities exam: PRESENT: full ROM, pedal edema, +2 edema, other - Chronic bilateral lower extremity lymphedema. ABSENT: calf tenderness, clubbing Neurological exam: PRESENT: alert, awake, oriented to person, oriented to place, oriented to time, oriented to situation, CN II-XII grossly intact. ABSENT: motor sensory deficit Psychiatric exam: PRESENT: appropriate affect, normal mood. ABSENT: homicidal ideation, suicidal ideation Skin exam: PRESENT: dry, intact, warm, other - Chronic bilateral lower extremity lymphedema. ABSENT: cyanosis, rash Results Laboratory Results: 03/13/19 11:45 03/16/19 09:53 03/16/19 09:53 Sodium 135.2 L Potassium 4.8 Chloride 100 Carbon Dioxide 23 Anion Gap 12 BUN 38 H Creatinine 0.95 Est GFR ( Amer) > 60 Glucose 108 Calcium 9.3 03/13/19 03/13/19 03/13/19 11:45 11:45 17:25 Creatine Kinase 244 H 236 H CK-MB (CK-2) 0.64 Troponin I 0.057 NT-Pro-B Natriuret Pep 54 03/13/19 03/13/19 03/13/19 17:35 22:51 22:51 Creatine Kinase 242 H CK-MB (CK-2) 0.66 0.61 Troponin I 0.048 0.065 NT-Pro-B Natriuret Pep 03/14/19 03/14/19 03/14/19 04:49 04:49 04:49 Creatine Kinase 268 H CK-MB (CK-2) 0.69 Troponin I 0.056 NT-Pro-B Natriuret Pep 73 Impressions: Chest X-Ray 03/13/19 12:10 IMPRESSION: Mild diffuse interstitial pulmonary opacity, likely edema in the setting of cardiomegaly. No focal airspace opacity. Assessment and Plan - Diagnosis (1) CHF (congestive heart failure) Qualifiers: Heart failure type: unspecified Heart failure chronicity: chronic Qualified Code(s): I50.9 - Heart failure, unspecified Is this a current diagnosis for this admission?: Yes Plan: 03/14/2019-according to the patient has a history of congestive heart failure. He is unaware of the type. His BNP is normal. I have ordered an echocardiogram and hopefully we can get useful images. I doubt very much that this is congestive heart failure and so I have held his Lasix and I am giving him fluids because of his acute kidney injury. 03/17/2019-I do not feel this was congestive heart failure nature as patient had a normal BNP on admission. Patient was given Lasix for several days with acute renal failure as an outcome. Patient was hydrated and all of his labs are back to normal at this time. (2) DVT (deep venous thrombosis) Qualifiers: Chronicity: chronic Is this a current diagnosis for this admission?: No Plan: Has a history of this, has a vena cava filter. He does not want to accept the explanation that he needs 475 pounds with a BMI of over 70 and that that is contributing to his trouble breathing. He does have a history of blood clots and has an IVC filter and said he was having some pain in the right side of his chest with breathing so now that his kidneys are normal I am going to get a CTA of his chest just to rule out any underlying embolic pathology. -patient does have a history of DVT and has a vena cava filter in place. Provider yesterday felt the necessity to get a CTA of the chest and patient refused at that time to obtain. Patient will have a CTA this morning for further follow-up. (3) Morbid obesity Is this a current diagnosis for this admission?: Yes Plan: Encouraged lifestyle modification, I think that this is probably the main contributor to his dyspnea. The official echocardiogram read is pending, but I do not think he has congestive heart failure. His BNP was only 73. The prelim inary read shows an EF 64%, but he may have dilated left atrium and a dilated right ventricle, along with some elevated RVSP, suggesting pulmonary hypertension. 03/17/2019-continue to educate about modification of dietary lifestyle (4) Low back pain Qualifiers: Chronicity: chronic Back pain laterality: bilateral Sciatica presence: without sciatica Qualified Code(s): M54.5 - Low back pain; G89.29 - Other chronic pain Is this a current diagnosis for this admission?: Yes Plan: 03/14/2019-the patient had surgery on his back years ago for a "tumor that was benign". He describes compression neuropathy as the reason for the urgent surgery. We will use as needed analgesia for the time being. He cannot use nonsteroidal anti-inflammatory medications due to his hypertension and kidney failure. 03/17/2019-unknown etiology. 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 Continue PRN Percocet and nonsteroidals (5) Acute kidney injury Is this a current diagnosis for this admission?: Yes Plan: Resolved -stable continue to follow (6) Abdominal pain Is this a current diagnosis for this admission?: Yes Plan: 03/17/2019-unknown etiology. Patient stating pain in his epigastric region. Patient getting medications for this GERD type symptoms as patient is going on for CTA of his chest I will have an abdominal CT performed as well. - Plan Summary Summary: 03/14/2019-the patient's shortness of breath at this particular time is not congestive heart failure. His brain atretic peptide is less than 100. Echocardiogram results are pending. I believe his shortness of breath is more related to morbid obesity. He describes noticing on his body exactly where he loses fluid when he urinates. This is not a physiologic possibility. I am holding his furosemide and giving him fluid today to correct his acute kidney injury and hyperkalemia. His lisinopril and hydrochlorthiazide are on hold. Follow-up echo results when available. - Time Time Spent with patient: 15-24 minutes - Inpatient Certification Based on my medical assessment, after consideration of the patient's comorbidities, presenting symptoms, or acuity I expect that the services needed warrant INPATIENT care.: Yes I certify that my determination is in accordance with my understanding of Medicare's requirements for reasonable and necessary INPATIENT services [42 CFR 412.3e].: Yes Medical Necessity: Need Close Monitoring Due to Risk of Patient Decompensation, Other - Further diagnostics
[2019-03-17] MEDS: OXYCODONE-ACETAMINOPHEN 5-325 MG TABLET PO PRN (19:47)
[2019-03-17] MEDS: MELATONIN 3 MG TABLET PO SCH (22:11)
[2019-03-17] MEDS: ASPIRIN 81 MG TABLET, ENT COATED PO SCH (22:11)
[2019-03-17] MEDS: ATORVASTATIN CALCIUM 40 MG TABLET PO SCH (22:11)
[2019-03-18] MEDS: NALBUPHINE HCL INJ 10 MG/1 ML AMPULE IV PRN ×2 (00:04→06:35)
[2019-03-18] MEDS: METOPROLOL TARTRATE 100 MG TABLET PO SCH ×2 (06:37→17:19)
[2019-03-18] MEDS: HEPARIN SOD (PORCINE) 5,000 UNIT/ML 1 ML VIAL SUBCUT SCH ×3 (06:37→21:47)
[2019-03-18] MEDS: OXYCODONE-ACETAMINOPHEN 5-325 MG TABLET PO PRN ×3 (08:09→22:54)
[2019-03-18 08:56] LABS: HEMATOCRIT 30.8 % (37.9-51.0); HEMOGLOBIN 10.3 g/dL (13.5-17.0); MEAN CORPUSCULAR HEMOGLOBIN 31.1 pg (27.0-33.4); MEAN CORPUSCULAR HGB CONC 33.5 g/dL (32.0-36.0); MEAN CORPUSCULAR VOLUME 93 fl (80-97); PLATELET COUNT 225 10^3/uL (150-450); RED BLOOD COUNT 3.31 10^6/uL (4.35-5.55); RED CELL DISTRIBUTION WIDTH 13.6 % (11.5-14.0); WHITE BLOOD COUNT 15.1 10^3/uL (4.0-10.5)
[2019-03-18] MEDS: FAMOTIDINE 20 MG TABLET PO SCH ×2 (09:28→21:47)
[2019-03-18] MEDS: FLUOXETINE HCL 20 MG CAPSULE PO SCH (09:28)
[2019-03-18 09:32] LABS: ANION GAP 12 (5-19); BLOOD UREA NITROGEN 24 mg/dL (7-20); CALCIUM 9.4 mg/dL (8.4-10.2); CARBON DIOXIDE 22 mmol/L (22-30); CHLORIDE 100 mmol/L (98-107); GLUCOSE 107 mg/dL (75-110); POTASSIUM 4.9 mmol/L (3.6-5.0)
[2019-03-18 10:46] LABS: APPEARANCE,URINE SLIGHTLY-CLOUDY; BILIRUBIN,URINE NEGATIVE (NEGATIVE); COLOR,URINE AMBER; GLUCOSE, URINE NEGATIVE (NEGATIVE); KETONES,URINE NEGATIVE (NEGATIVE); PROTEIN,URINE 100 mg/dL (NEGATIVE); URINE SPECIFIC GRAVITY 1.029
[2019-03-18] MEDS ORDERED: MAG HYDROX/AL HYDROX/SIMETH SUSP 30 ML UDCUP ONE (12:34)
[2019-03-18] MEDS: CEFTRIAXONE 1 GM/D5W RTU 1 GM/50 ML RTUPB IV SCH (12:39)
[2019-03-18] MEDS ORDERED: MAG HYDROX/AL HYDROX/SIMETH SUSP 30 ML UDCUP PO PRN (13:01)
--- NOTE | 2019-03-18 17:56 | PDOC PROGRESS REPORT ---
Subjective Progress Note for:: 03/18/19 Subjective:: The patient is a 43-year-old male with past medical history of hypertension, CHF, super morbid obesity who was admitted 03/13/2019 for worsening dyspnea concerning for CHF exacerbation. Next Patient was seen on morning rounds. He is found resting in bed comfortably on room air; actually found lying supine with easy and unlabored respirations, speaking full sentences. He reports that his breathing is much improved today. His only complaint is suprapubic abdominal pain and dysuria. He reports he feels like he has a urinary tract infection. He denies fever, chills, chest pain, palpitations, dyspnea, orthopnea, nausea, vomiting, diarrhea. He has no other questions or concerns at this time. No concerns per nursing. Reason For Visit: CHF Physical Exam Vital Signs: Temp Pulse Resp BP Pulse Ox 99.0 F 98 18 140/78 H 100 03/18/19 15:25 03/18/19 15:25 03/18/19 15:25 03/18/19 15:25 03/18/19 15:25 Intake & Output 03/17/19 03/18/19 03/19/19 06:59 06:59 06:59 Intake Total 1654 1520 930 Output Total 1325 1625 440 Balance 329 -105 490 Weight 217 kg 227.8 kg General appearance: PRESENT: no acute distress, cooperative, disheveled - Body odor, well-developed, well-nourished Head exam: PRESENT: atraumatic, normocephalic Eye exam: PRESENT: conjunctiva pink, EOMI, PERRLA. ABSENT: scleral icterus Ear exam: PRESENT: normal external ear exam Mouth exam: PRESENT: moist, tongue midline Neck exam: ABSENT: carotid bruit, JVD, lymphadenopathy, thyromegaly Respiratory exam: PRESENT: clear to auscultation corinne, decreased breath sounds - Secondary to body habitus, positioning, poor inspiratory effort, symmetrical, unlabored. ABSENT: rales, rhonchi, wheezes Cardiovascular exam: PRESENT: RRR. ABSENT: diastolic murmur, rubs, systolic murmur Pulses: PRESENT: normal dorsalis pedis pul Vascular exam: PRESENT: normal capillary refill GI/Abdominal exam: PRESENT: normal bowel sounds, soft. ABSENT: distended, guarding, mass, organolmegaly, rebound, tenderness Rectal exam: PRESENT: deferred Gentrourinary exam: PRESENT: indwelling catheter Extremities exam: PRESENT: full ROM, pedal edema - +1 bilaterally. ABSENT: calf tenderness, clubbing Neurological exam: PRESENT: alert, awake, oriented to person, oriented to place, oriented to time, oriented to situation, CN II-XII grossly intact. ABSENT: motor sensory deficit Psychiatric exam: PRESENT: appropriate affect, normal mood. ABSENT: homicidal ideation, suicidal ideation Skin exam: PRESENT: dry, intact, warm. ABSENT: cyanosis, rash Results Laboratory Results: 03/18/19 08:28 03/18/19 08:28 03/18/19 03/18/19 03/18/19 08:28 08:28 10:30 WBC 15.1 H RBC 3.31 L Hgb 10.3 L Hct 30.8 L MCV 93 MCH 31.1 MCHC 33.5 RDW 13.6 Plt Count 225 Sodium 133.5 L Potassium 4.9 Chloride 100 Carbon Dioxide 22 Anion Gap 12 BUN 24 H Creatinine 0.84 Est GFR ( Amer) > 60 Glucose 107 Calcium 9.4 Urine Color JAC Urine Appearance SLIGHTLY-CLOUDY Urine pH 6.0 Ur Specific [place] 1.029 Urine Protein 100 H Urine Glucose (UA) NEGATIVE Urine Ketones NEGATIVE Urine Blood LARGE H Urine RBC (Auto) >182 03/13/19 03/13/19 03/13/19 11:45 11:45 17:25 Creatine Kinase 244 H 236 H CK-MB (CK-2) 0.64 Troponin I 0.057 NT-Pro-B Natriuret Pep 54 03/13/19 03/13/19 03/13/19 17:35 22:51 22:51 Creatine Kinase 242 H CK-MB (CK-2) 0.66 0.61 Troponin I 0.048 0.065 NT-Pro-B Natriuret Pep 03/14/19 03/14/19 03/14/19 04:49 04:49 04:49 Creatine Kinase 268 H CK-MB (CK-2) 0.69 Troponin I 0.056 NT-Pro-B Natriuret Pep 73 Impressions: Chest X-Ray 03/13/19 12:10 IMPRESSION: Mild diffuse interstitial pulmonary opacity, likely edema in the setting of cardiomegaly. No focal airspace opacity. Assessment and Plan - Diagnosis (1) UTI (urinary tract infection) due to urinary indwelling Tapia catheter Qualifiers: Indwelling urinary catheter type: indwelling urethral catheter Encounter type: initial encounter Qualified Code(s): T83.511A - Infection and inflammatory reaction due to indwelling urethral catheter, initial encounter; N39.0 - Urinary tract infection, site not specified Is this a current diagnosis for this admission?: Yes Plan: Patient reports suprapubic abdominal discomfort and dysuria. Tapia catheter placed for management of I's and O's during treatment for presumed CHF exacerbation. WBC is elevated to 15 today and urinalysis suggestive of urinary tract infection. Urine culture pending. Start on IV Rocephin; first dose today. Pyridium. Remove Tapia catheter. Encourage p.o. fluids. (2) CHF (congestive heart failure) Qualifiers: Heart failure type: unspecified Heart failure chronicity: chronic Qualified Code(s): I50.9 - Heart failure, unspecified Is this a current diagnosis for this admission?: Yes Plan: Patient endorses history of CHF. proBNP is normal, however, should be interpreted in setting of his super morbid obesity. Echocardiogram has been completed; final report pending. Preliminary demonstrates normal ejection fraction but with possible enlarged right RA/RV. Patient was initially provided IV furosemide; resulting in JOSE. Subsequently discontinued. He is on a low-sodium diet. Continue to monitor strict I's and O's; consider fluid restriction. Continue home dose metoprolol. Holding lisinopril secondary to JOSE. Continue daily aspirin and statin therapy. (3) Depression Qualifiers: Depression Type: unspecified Qualified Code(s): F32.9 - Major depressive disorder, single episode, unspecified Is this a current diagnosis for this admission?: Yes Plan: Psychosocial evaluation noted, will continue with medications per their recommendation (4) HTN (hypertension) Qualifiers: Hypertension type: essential hypertension Qualified Code(s): I10 - Essential (primary) hypertension Is this a current diagnosis for this admission?: Yes Plan: Currently well controlled on home dose metoprolol. Holding lisinopril/HCTZ secondary to recent JOSE. (5) Morbid obesity Is this a current diagnosis for this admission?: Yes Plan: BMI 74.2. Dietary discretion and lifestyle modification encouraged. PT/OT consultations obtained. Specialty bed. Consistent carb diet. (6) Low back pain Qualifiers: Chronicity: chronic Back pain laterality: bilateral Sciatica presence: without sciatica Qualified Code(s): M54.5 - Low back pain; G89.29 - Other chronic pain Is this a current diagnosis for this admission?: Yes Plan: Review of [place] controlled substance database shows that he has not been prescribed narcotic medications for over a year. Continue Tylenol as needed for discomfort. Consider Lidoderm patches. Continue oxycodone; avoid additional narcotic medications secondary to obesity, SUMI, concern for respiratory depression. Increased mobility, nonpharmacological interventions. (7) DVT (deep venous thrombosis) Qualifiers: Chronicity: chronic Is this a current diagnosis for this admission?: No Plan: Has a history of this, has a vena cava filter. Continue heparin for DVT prophylaxis. PT/OT consultation. Out of bed for meals. Ambulate 3 times daily. (8) Dyspnea Qualifiers: Dyspnea type: unspecified Qualified Code(s): R06.00 - Dyspnea, unspecified Is this a current diagnosis for this admission?: Yes Plan: Resolved. Patient found resting, supine, on room air and denies dyspnea at rest. Activity tolerance is significantly reduced secondary to super morbid obesity. Chest x-ray at time of admission revealed likely pulmonary edema; received IV diuresis. Subsequently discontinued. He is not a candidate for CT or MRI imaging as his body habitus precludes these exams at our facility. CHF exacerbation has been ruled out. Pulmonary embolus is effectively ruled out as the patient is maintaining oxygen saturations at 100% on room air without tachypnea or tachycardia. - Plan Summary Summary: 03/14/2019-the patient's shortness of breath at this particular time is not congestive heart failure. His brain atretic peptide is less than 100. Echocardiogram results are pending. I believe his shortness of breath is more related to morbid obesity. He describes noticing on his body exactly where he loses fluid when he urinates. This is not a physiologic possibility. I am holding his furosemide and giving him fluid today to correct his acute kidney injury and hyperkalemia. His lisinopril and hydrochlorthiazide are on hold. Follow-up echo results when available. - Time Time Spent with patient: 15-24 minutes Medications reviewed and adjusted accordingly: Yes Anticipated discharge: Home Within: within 24 hours
[2019-03-18] MEDS: PHENAZOPYRIDINE HCL 100 MG TABLET PO SCH ×2 (18:24→21:47)
[2019-03-18] MEDS: ASPIRIN 81 MG TABLET, ENT COATED PO SCH (21:47)
[2019-03-18] MEDS: MELATONIN 3 MG TABLET PO SCH (21:47)
[2019-03-18] MEDS: LACTULOSE SYRUP 20 GM/30 ML UDCUP PO SCH (21:47)
[2019-03-18] MEDS: ATORVASTATIN CALCIUM 40 MG TABLET PO SCH (21:47)
[2019-03-19 05:04] LABS: HEMATOCRIT 30.4 % (37.9-51.0); HEMOGLOBIN 10.2 g/dL (13.5-17.0); MEAN CORPUSCULAR HEMOGLOBIN 31.5 pg (27.0-33.4); MEAN CORPUSCULAR HGB CONC 33.6 g/dL (32.0-36.0); MEAN CORPUSCULAR VOLUME 94 fl (80-97); PLATELET COUNT 238 10^3/uL (150-450); RED BLOOD COUNT 3.25 10^6/uL (4.35-5.55); RED CELL DISTRIBUTION WIDTH 13.6 % (11.5-14.0); WHITE BLOOD COUNT 14.7 10^3/uL (4.0-10.5)
[2019-03-19] MEDS: METOPROLOL TARTRATE 100 MG TABLET PO SCH ×2 (05:55→17:25)
[2019-03-19] MEDS: HEPARIN SOD (PORCINE) 5,000 UNIT/ML 1 ML VIAL SUBCUT SCH ×3 (05:55→21:19)
[2019-03-19] MEDS: OXYCODONE-ACETAMINOPHEN 5-325 MG TABLET PO PRN ×2 (05:55→21:18)
[2019-03-19] MEDS: PHENAZOPYRIDINE HCL 100 MG TABLET PO SCH ×3 (05:55→21:19)
[2019-03-19] MEDS: FLUOXETINE HCL 20 MG CAPSULE PO SCH (09:29)
[2019-03-19] MEDS: FAMOTIDINE 20 MG TABLET PO SCH ×2 (09:29→21:18)
[2019-03-19] MEDS: LACTULOSE SYRUP 20 GM/30 ML UDCUP PO SCH (09:30)
[2019-03-19] MEDS: ACETAMINOPHEN 325 MG TABLET PO PRN (10:14)
[2019-03-19] MEDS: CEFTRIAXONE 1 GM/D5W RTU 1 GM/50 ML RTUPB IV SCH (12:54)
--- NOTE | 2019-03-19 19:06 | PDOC DISCHARGE SUMMARY ---
Impression - Admit/DC Date/PCP Admission Date/Primary Care Provider: 03/13/19 15:01 Discharge Date: 03/19/19 - Discharge Diagnosis (1) UTI (urinary tract infection) due to urinary indwelling Tapia catheter Is this a current diagnosis for this admission?: Yes (2) CHF (congestive heart failure) Is this a current diagnosis for this admission?: Yes (3) Depression Is this a current diagnosis for this admission?: Yes (4) HTN (hypertension) Is this a current diagnosis for this admission?: Yes (5) Morbid obesity Is this a current diagnosis for this admission?: Yes (6) Low back pain Is this a current diagnosis for this admission?: Yes (7) DVT (deep venous thrombosis) Is this a current diagnosis for this admission?: No (8) Dyspnea Is this a current diagnosis for this admission?: Yes - Additional Information Resuscitation Status: Full Code Discharge Diet: Cardiac, Other (Comments) - Low calorie, low fat Discharge Activity: Activity As Tolerated, Balance Activity w/Rest, Slowly Increase Activity, Walk Frequently, Weigh Daily Referrals: [facility] [Provider Group] - 03/28/19 9:45 am [facility] [Provider Group] (Follow up at the earliest available appointment. Address: [facility] [address], [place] [address] ) Prescriptions: Ciprofloxacin HCl [Cipro 250 mg Tablet] 1 tab PO BID #14 tab Metoprolol Tartrate [Lopressor 100 mg Tablet] 100 mg PO Q12A #60 tablet Phenazopyridine HCl [Pyridium 100 mg Tablet] 100 mg PO Q8 #9 tablet Home Medications: Fluoxetine HCl [Prozac 20 mg Capsule] 20 mg PO DAILY 03/13/19 Lisinopril/Hydrochlorothiazide [Lisinopril-Hctz 20-25 mg Tab] 1 each PO DAILY 03/13/19 Acetaminophen [Tylenol 325 mg Tablet] 650 mg PO Q4HP PRN tablet 03/18/19 Metoprolol Tartrate [Lopressor 100 mg Tablet] 100 mg PO Q12A #60 tablet 03/18/19 Ciprofloxacin HCl [Cipro 250 mg Tablet] 1 tab PO BID #14 tab 03/19/19 Phenazopyridine HCl [Pyridium 100 mg Tablet] 100 mg PO Q8 #9 tablet 03/19/19 History of Present Illiness History of Present Illness: Per H&P by Dr. Wisdom: ELIAZAR TERRY is a 43 year old male with history of hypertension, congestive heart failure, morbid obesity came to the emergency room with complaints of weight gain more than 50 pounds in the last couple of days associated with increasing shortness of breath. As per the patient his Lasix was discontinued 2 weeks ago and started on lisinopril/hydrochlorothiazide after that he started gaining weight. Drinking gallons of water water but the urinary output is not significant. Denies any headaches denies any dizzy spells denies any chest pains. Patient is given the history of back surgery several years ago complaining of increasing back pain. Hospital Course Hospital Course: (1) UTI (urinary tract infection) due to urinary indwelling Tapia catheter Patient reported suprapubic abdominal discomfort and dysuria. Tapia catheter was placed for management of I&O's during treatment for presumed CHF exacerbation. WBC is elevated, bust stable w/ slight downward trend. Patient remains afebrile. Urinalysis suggestive of urinary tract infection. Urine culture has no growth at 24 hrs. Empirically placed on IV Rocephin; received 2 days of therapy. Tapia catheter has been removed. He is discharged to home on p.o. ciprofloxacin 250 mg twice daily x7 days and Pyridium 100 mg every 8 hours as needed. (2) CHF (congestive heart failure) Patient endorses history of CHF. proBNP is normal, however, should be interpreted in setting of his super morbid obesity. Echocardiogram has been completed; final report pending. Preliminary demonstrates normal ejection fraction but with possible enlarged right RA/RV. Patient was initially provided IV furosemide; resulting in JOSE. Subsequently discontinued. He is down 2 kg since time of admission. Now euvolemic. Maintaining oxygen saturations of 100% on room air while lying supine. Continue home dose metoprolol; resume home dose lisinopril/hctz at discharge. Recommend continued cardiac diet. (3) Depression Mental health evaluation was requested. Cleared from psychiatric perspective. Recommend continuing home dose Prozac. (4) HTN (hypertension) Currently well controlled on home dose metoprolol. Resuming lisinopril/HCTZ at discharge. (5) Morbid obesity BMI 74.2. Dietary discretion and lifestyle modification encouraged. PT/OT consultations obtained; patient would benefit from continued rehab services. Have asked discharge planning to assist with arranging for home health physical therapy and Occupational Therapy. Patient already has a walker and does not require any other DME equipment. Significant amount of time, by multiple providers, spent in educating the patient and his family members of the importance of sustained weight loss as his super morbid obesity is the primary contributing factor to his dyspnea with exertion and debility. (6) Low back pain Review of [place] controlled substance database shows that he has not been prescribed narcotic medications for over a year. No red flags; no saddle anesthesia, foot drop, stool/urinary incontinence. No focal or neuro deficits noted. PT/OT consultations obtained; recommend continue physical therapy services as an outpatient. Patient was able to stand, but did not ambulate r/t BLE discomfort ("pressure") when shifting weight. Patient was provided analgesic medications as needed; recommend OTC medications per package instructions and nonpharmacological interventions at discharge. Attempted to arrange for orthopedic follow-up appointment; [facility] requests that the patient contact them directly to schedule this appointment. [facility]'s contact information added to discharge instructions. (7) DVT (deep venous thrombosis) Has a history of DVT; s/p vena cava filter. Received heparin for DVT prophylaxis. (8) Dyspnea Resolved. Patient found resting, supine, on room air and denies dyspnea at rest. Activity tolerance is significantly reduced secondary to super morbid obesity. Chest x-ray at time of admission revealed likely pulmonary edema; received IV diuresis. Subsequently discontinued. Previous provider considered Chest CTA. He is not a candidate for CT or MRI imaging as his body habitus precludes these exams at our facility. Verified w/ both [facility] and [facility] that, although their machines allow for increased weight, the patient's circumference would remain a limiting factor. As the patient's dyspnea resolved following diuresis, he has a stable heart/respiratory rate, and is maintaining oxygen saturations on room air while supine, there are no indications for advanced imagining at this time. Physical Exam Vital Signs: Temp Pulse Resp BP Pulse Ox 97.4 F 88 16 114/70 99 03/19/19 13:35 03/19/19 14:00 03/19/19 13:35 03/19/19 13:35 03/19/19 13:35 Intake & Output 03/18/19 03/19/19 03/20/19 06:59 06:59 06:59 Intake Total 1520 1674 Output Total 1620 1040 Balance -105 634 Weight 227.8 kg 226.3 kg General appearance: PRESENT: no acute distress, morbidly obese, well-developed, well-nourished Head exam: PRESENT: atraumatic, normocephalic Eye exam: PRESENT: conjunctiva pink, EOMI, PERRLA. ABSENT: scleral icterus Ear exam: PRESENT: normal external ear exam Mouth exam: PRESENT: moist, tongue midline Respiratory exam: PRESENT: symmetrical, unlabored, other - Room air. ABSENT: accessory muscle use, retraction Cardiovascular exam: PRESENT: RRR Vascular exam: PRESENT: normal capillary refill Extremities exam: PRESENT: full ROM Neurological exam: PRESENT: alert, awake, oriented to person, oriented to place, oriented to time, oriented to situation, CN II-XII grossly intact. ABSENT: motor sensory deficit Psychiatric exam: PRESENT: agitated, appropriate affect, normal mood. ABSENT: homicidal ideation, suicidal ideation Skin exam: PRESENT: dry, intact, warm. ABSENT: cyanosis, rash Additional comments: Exam limited secondary to patient declination of care/exam Results Laboratory Results: WBC 14.7 10^3/uL (4.0-10.5) H 03/19/19 03:53 RBC 3.25 10^6/uL (4.35-5.55) L 03/19/19 03:53 Hgb 10.2 g/dL (13.5-17.0) L 03/19/19 03:53 Hct 30.4 % (37.9-51.0) L 03/19/19 03:53 MCV 94 fl (80-97) 03/19/19 03:53 MCH 31.5 pg (27.0-33.4) 03/19/19 03:53 MCHC 33.6 g/dL (32.0-36.0) 03/19/19 03:53 RDW 13.6 % (11.5-14.0) 03/19/19 03:53 Plt Count 238 10^3/uL (150-450) 03/19/19 03:53 Lymph % (Auto) 20.5 % (13-45) 03/13/19 11:45 [place] % (Auto) 8.1 % (3-13) 03/13/19 11:45 Eos % (Auto) 1.3 % (0-6) 03/13/19 11:45 Baso % (Auto) 0.5 % (0-2) 03/13/19 11:45 Absolute Neuts (auto) 7.3 10^3/uL (1.7-8.2) 03/13/19 11:45 Absolute Lymphs (auto) 2.2 10^3/uL (0.5-4.7) 03/13/19 11:45 Absolute Monos (auto) 0.9 10^3/uL (0.1-1.4) 03/13/19 11:45 Absolute Eos (auto) 0.1 10^3/uL (0.0-0.6) 03/13/19 11:45 Absolute Basos (auto) 0.1 10^3/uL (0.0-0.2) 03/13/19 11:45 Seg Neutrophils % 69.6 % (42-78) 03/13/19 11:45 Sodium 133.5 mmol/L (137-145) L 03/18/19 08:28 Potassium 4.9 mmol/L (3.6-5.0) 03/18/19 08:28 Chloride 100 mmol/L (98-107) 03/18/19 08:28 Carbon Dioxide 22 mmol/L (22-30) 03/18/19 08:28 Anion Gap 12 (5-19) 03/18/19 08:28 BUN 24 mg/dL (7-20) H 03/18/19 08:28 Creatinine 0.84 mg/dL (0.52-1.25) 03/18/19 08:28 Est GFR ( Amer) > 60 (>60) 03/18/19 08:28 Est GFR (MDRD) Non-Af > 60 (>60) 03/18/19 08:28 Glucose 107 mg/dL (75-110) 03/18/19 08:28 Hemoglobin A1c % 5.9 % (4.7-6.0) 03/14/19 04:49 Calcium 9.4 mg/dL (8.4-10.2) 03/18/19 08:28 Magnesium 2.4 mg/dL (1.6-2.3) H 03/15/19 05:05 Total Bilirubin 0.8 mg/dL (0.2-1.3) 03/14/19 04:49 Direct Bilirubin 0.3 mg/dL (0.0-0.4) 03/14/19 04:49 Neonat Total Bilirubin Not Reportable 03/14/19 04:49 Neonat Direct Bilirubin Not Reportable 03/14/19 04:49 Neonat Indirect Bili Not Reportable 03/14/19 04:49 AST 21 U/L (17-59) 03/14/19 04:49 ALT 18 U/L (<50) 03/14/19 04:49 Alkaline Phosphatase 74 U/L (38-126) 03/14/19 04:49 Creatine Kinase 268 U/L (55-170) H 03/14/19 04:49 CK-MB (CK-2) 0.69 ng/mL (<4.55) 03/14/19 04:49 Troponin I 0.056 ng/mL 03/14/19 04:49 NT-Pro-B Natriuret Pep 73 pg/mL (<125) 03/14/19 04:49 Total Protein 8.1 g/dL (6.3-8.2) 03/14/19 04:49 Albumin 4.4 g/dL (3.5-5.0) 03/14/19 04:49 Triglycerides 122 mg/dL (<150) 03/14/19 04:49 Cholesterol 223.25 mg/dL (0-200) H 03/14/19 04:49 LDL Cholesterol Direct 109 mg/dL (<100) H 03/14/19 04:49 VLDL Cholesterol 24.0 mg/dL (10-31) 03/14/19 04:49 HDL Cholesterol 44 mg/dL (>40) 03/14/19 04:49 TSH 2.01 uIU/mL (0.47-4.68) 03/14/19 04:49 Urine Color JAC 03/18/19 10:30 Urine Appearance SLIGHTLY-CLOUDY 03/18/19 10:30 Urine pH 6.0 (5.0-9.0) 03/18/19 10:30 Ur Specific [place] 1.029 03/18/19 10:30 Urine Protein 100 mg/dL (NEGATIVE) H 03/18/19 10:30 Urine Glucose (UA) NEGATIVE mg/dL (NEGATIVE) 03/18/19 10:30 Urine Ketones NEGATIVE mg/dL (NEGATIVE) 03/18/19 10:30 Urine Blood LARGE (NEGATIVE) H 03/18/19 10:30 Urine Nitrite NEGATIVE (NEGATIVE) 03/13/19 15:17 Urine Nitrite (Reflex) NEGATIVE (NEGATIVE) 03/18/19 10:30 Urine Bilirubin NEGATIVE (NEGATIVE) 03/18/19 10:30 Urine Urobilinogen 2.0 mg/dL (<2.0) H 03/18/19 10:30 Ur Leukocyte Esterase NEGATIVE (NEGATIVE) 03/13/19 15:17 Leukocyte Esterase Rfl TRACE (NEGATIVE) H 03/18/19 10:30 Urine WBC (Auto) 2 /HPF 03/13/19 15:17 Urine RBC (Auto) >182 /HPF 03/18/19 10:30 U Hyaline Cast (Auto) 130 /LPF 03/13/19 15:17 Urine WBC (Reflex) 8 /HPF 03/18/19 10:30 Squamous Epi Cells Auto 1 /HPF 03/18/19 10:30 U Non-Squamous Epis Auto 2 /HPF 03/18/19 10:30 Urine Mucus (Auto) MOD /LPF 03/18/19 10:30 Urine Ascorbic Acid NEGATIVE (NEGATIVE) 03/18/19 10:30 03/13/19 03/13/19 03/13/19 11:45 17:35 22:51 CK-MB (CK-2) 0.64 0.66 0.61 Troponin I 0.057 0.048 0.065 NT-Pro-B Natriuret Pep 54 03/14/19 03/14/19 04:49 04:49 CK-MB (CK-2) 0.69 Troponin I 0.056 NT-Pro-B Natriuret Pep 73 Impressions: Chest X-Ray 03/13/19 12:10 IMPRESSION: Mild diffuse interstitial pulmonary opacity, likely edema in the setting of cardiomegaly. No focal airspace opacity. Plan Plan of Treatment: Follow up with primary care provider within 1 week. Follow up with [facility] at the earliest available appointment for further evaluation of your back pain. Eat a low sodium, low fat, low calorie diet. Focus on fresh fruits and vegetables and lean meats. Avoid white bread, white rice, white potatoes, and white pasta as these are calorie dense foods that are relatively low on nutrition. Complete course of antibiotics. Take other medications as prescribed. Return to the emergency department as needed for concerning symptoms. Time Spent: Greater than 30 Minutes Stroke Is this a Stroke Patient?: No Acute Heart Failure - Is this a Heart Failure Patient?: Yes Documentation of LVEF assessment?: Yes LVEF < 40%?: No- if no continue to question #3 3. Anticoagulant therapy for permanect/persistent/paraoxysmal Afib or Aflutter: N/A Follow-up Appointment scheduled within 7 days?: Yes
[2019-03-19] MEDS: ASPIRIN 81 MG TABLET, ENT COATED PO SCH (21:18)
[2019-03-19] MEDS: ATORVASTATIN CALCIUM 40 MG TABLET PO SCH (21:18)
[2019-03-19] MEDS: MELATONIN 3 MG TABLET PO SCH (21:18)
[2019-03-20] MEDS: OXYCODONE-ACETAMINOPHEN 5-325 MG TABLET PO PRN (05:24)
[2019-03-20] MEDS: HEPARIN SOD (PORCINE) 5,000 UNIT/ML 1 ML VIAL SUBCUT SCH (05:24)
[2019-03-20] MEDS: METOPROLOL TARTRATE 100 MG TABLET PO SCH (05:24)
[2019-03-20] MEDS: PHENAZOPYRIDINE HCL 100 MG TABLET PO SCH (05:24)
[2019-03-20 09:19] VITALS: BP 121/82
[2019-03-20] MEDS: LACTULOSE SYRUP 20 GM/30 ML UDCUP PO SCH (09:24)
[2019-03-20] MEDS: FAMOTIDINE 20 MG TABLET PO SCH (09:25)
[2019-03-20] MEDS: FLUOXETINE HCL 20 MG CAPSULE PO SCH (09:28)
[2019-03-20] MEDS: CEFTRIAXONE 1 GM/D5W RTU 1 GM/50 ML RTUPB IV SCH (12:22)
== END 2019-03-20 13:20 | disposition home or self-care (01) | DRG 699 ==
LOC: ER 11:07 → EH 14:37 → OBSVTOIN 15:01 → 3N 16:45
PROVIDERS: ADMIT Internal Medicine; ATTEND Internal Medicine
DX: T83.511A Infection and inflammatory reaction due to indwelling urethral catheter, initial encounter (principal); Z68.45 Body mass index [BMI] 70 or greater, adult; I82.5Z9 Chronic embolism and thrombosis of unspecified deep veins of unspecified distal lower extremity; N17.9 Acute kidney failure, unspecified; I50.32 Chronic diastolic (congestive) heart failure; Y84.6 Urinary catheterization as the cause of abnormal reaction of the patient, or of later complication, without mention of misadventure at the time of the procedure; F32.9 Major depressive disorder, single episode, unspecified; I11.0 Hypertensive heart disease with heart failure; E66.01 Morbid (severe) obesity due to excess calories; M54.5 Low back pain; E78.5 Hyperlipidemia, unspecified; E87.5 Hyperkalemia
CPT/HCPCS: 36415; 71046; 80048; 80053; 80061; 81001; 82550; 82553; 83036; 83735; 83880; 84443; 84484; 85025; 85027; 87086; 93005; 93010; 93306; 94640; 96374; 96375; 99285; J0696; J1644; J1885; J1940; J2300; J2405; J3490; J7030